=== PATIENT | male | born 1960 | race Asian ===

== ENCOUNTER 2019-11-24 09:23 | Emergency (ER) | payer BC ==
[~2019-11-24] VITALS: Ht 177.8 cm; Wt 77.1 kg
[2019-11-24 09:29] VITALS: BP_SYST 144
--- NOTE | 2019-11-24 09:29 | NUR ---
Patient to ER bed 8 to gown for evaluation. Side rails up. Report given to Juliane ELDER.
--- NOTE | 2019-11-24 09:38 | NUR ---
pt arrives form home w/ c/o substernal CP 06/07. Pt said that he was reahcing for an item w/ his righ arm when the chest began. EKG done and given to .
--- NOTE | 2019-11-24 09:55 | NUR ---
ER at bedside examining patient.
--- NOTE | 2019-11-24 10:08 | NUR ---
pt getting a CXR at the bedside.
[2019-11-24] MEDS ORDERED: KETOROLAC TROMETHAMINE 60 MG/2 ML VIAL IM ONE (10:15)
--- NOTE | 2019-11-24 11:10 | NUR ---
Patient given written and verbal discharge instructions and verbalizes understanding. ER MD discussed with patient the results and treatment provided. Patient in stable condition. ID arm band removed. Rx of Naproxen given. Patient educated on pain management and to follow up with PMD. Pain Scale 3/10. Opportunity for questions provided and answered. Medication side effect fact sheet provided.
[2019-11-24 11:11] VITALS: BP_SYST 144
== END 2019-11-24 11:10 | disposition home or self-care (01) ==
LOC: SED 09:23
DX: S29.011A Strain of muscle and tendon of front wall of thorax, initial encounter (principal); X50.0XXA Overexertion from strenuous movement or load, initial encounter; Y93.89 Activity, other specified; Y92.89 Other specified places as the place of occurrence of the external cause; Y99.8 Other external cause status
CPT/HCPCS: 71045; 93005; 99283; J1885